=== PATIENT | male | born 1980 | race Caucasian/White ===

== ENCOUNTER → 2016-07-04 | Outpatient (CLI) | payer OTHER ==
[~2016-07-04] MED LIST: IOHEXOL 180 MG/ML 10 ML VIAL. ONE; LOSA100T6 PO; OMEP40CA5 PO; methylPREDNISolone ACETATE 40 MG/ML VIAL. ONE; methylPREDNISolone ACETATE 80 MG/ML VIAL. ONE
--- NOTE | 2016-07-05 06:19 | PAIN ---
DATE OF SERVICE: 07/04/2016 INITIAL CONSULTATION CHIEF COMPLAINT: Low back and right lower extremity pain. HISTORY OF PRESENT ILLNESS: This is a 35-year-old male who presents with history of pain in the low back, right leg, posterior gluteus, posterior thigh for about 5 weeks without any specific injury or accident, but he has been increasing some activity at work as well as at home with increased pain, gradually increasing and radiating from the low back into the right posterior gluteus, posterior thigh to the level of the knee and sometimes into the upper calf on the right side. No symptoms on the left side. The patient reports the pain is stabbing and tingling. He has had some decreased motor function in the right leg with fatigability, but actually feels better when he is walking or changing positions or standing. It is much worse with lying down. It is awakening him from sleep at night at least twice a night. It does not affect his bowel or bladder control, but does affect his ability to walk, although it feels better when he is up and moving around with sitting and driving significantly painful in the right leg with operating a vehicle. The patient reports his disability rating from 0 to 10, 10 being the worst, as a 6 with family and home responsibilities, social activity, 8 with recreation, 5 with occupation and sexual behavior, 6 with self-care and 6 with life support activities. The patient did have an MRI scan of the lumbar spine, showing a large right lateral herniated disc at the L5-S1 level with a fragment present demonstrating [id number] caudal migration it effaces the anterior epidural fat and produces marked deformity of the right S1 nerve root within the right lateral recess of S1. The patient has been doing some stretching and strengthening exercises on his own, has had no formal physical therapies or other treatments, taking ibuprofen as well, which he reports does help to decrease the pain by about 15-20%. Again, the patient reports complete loss of motor function with significant fatigability and pain with driving most noticeably. PAST MEDICAL HISTORY: Significant for hypertension; otherwise, the patient has been in very good health. PAST SURGICAL HISTORY: Previous surgeries include vasectomy in 2015. CURRENT MEDICATIONS: Include losartan and omeprazole. ALLERGIES: The patient has no known drug allergies. FAMILY HISTORY: Significant for no major medical problems or conditions that he is aware of. SOCIAL HISTORY: The patient drinks about 3-4 alcoholic drinks every few weeks. He does not smoke. He is , lives with his spouse and 2 children at home, and lives locally in [place], [place]. REVIEW OF SYSTEMS: The patient's review of systems is positive for those items mentioned in the history of present illness. It is complete, full and well documented on the patient's chart. All systems are reviewed and otherwise negative. PHYSICAL EXAMINATION: VITAL SIGNS: Today, the patient's blood pressure is 147/100, pulse 71, respirations 16, temperature 99.2 degrees Fahrenheit, height is 5 feet 10 inches, weight is 222 pounds. GENERAL: The patient is awake, alert, oriented, appropriate, very pleasant demeanor. HEENT: Shows normocephalic and atraumatic. Extraocular movements are intact and symmetrical. Oral cavity: Mucous membranes are moist and pink. Dentition is intact. NECK: Shows anterior throat supple without palpable lymphadenopathy noted. Swallow reflex is symmetrical. Neck shows full rotational motion of the cervical spine without tenderness or difficulty including extension and flexion. CHEST: Shows normal on inspection. Breath sounds are clear to auscultation bilaterally. HEART: Shows S1 and S2 clear. ABDOMEN: Soft, nontender, nondistended. No palpable organomegaly is noted. No new rebound or guarding demonstrated. BACK: Shows spine grossly in the midline. Normal-appearing cervical lordotic curvature, thoracic kyphotic curvature, and lumbar lordotic curvature. No previous bruises, lesions, rashes or scars are noted. The patient's lumbar paraspinous muscle shows symmetrical on inspection; with palpation, it shows normal muscle girth with some firm tenderness in the low lumbar distribution, but only diffusely and only to a mild extent. No radiation of pain is demonstrated. No atrophy or hypertrophy. No tenderness over the spinous processes, sacrum or sacroiliac regions. The patient shows good rotational motion of the lumbar spine, both laterally, greater than 10 degrees right and left as well as extension greater than 10 degrees, forward flexion to 45 degrees without significant pain reported. EXTREMITIES: Lower extremities show deep tendon reflexes 2+ in the patellar and tendo calcaneus tendons are 1+. Motor exam is strong with 5/5 dorsiflexion, extension, quadriceps and hamstring flexion equal and intact, quadriceps and hamstring flexion on the right is slightly painful, but intact with 5/5 strength. Peripheral pulses are 1+ posterior tibial and dorsalis pedis pulses. No peripheral edema is noted. No clubbing, no cyanosis. Lower extremities are warm and dry to touch, equal in color and appearance. Gaenslen's and Vishal's maneuvers are negative bilaterally. There is positive straight leg raise on the right at about 30-40 degrees, which is decreased but not relieved with knee flexion. Left side is negative. The patient is able to stand, stand on his toes without difficulty or loss of balance, is able to heel and toe walk for several steps in the office today and he walks with a normal-appearing gait for short distances, not using any assistive devices such as canes or walkers. IMPRESSION: 1. This is a 35-year-old male with history of pain for about 5 weeks or so in the low back and right lower extremity in a radicular fashion. 2. MRI scan of lumbar spine as noted. 3. Hypertension. PLAN: Options were discussed with the patient including conservative medical management, physical therapy, interventional techniques and he would like to pursue interventional techniques. We discussed a lumbar epidural steroid injection using description as well as anatomical models to describe the procedure. Risks were then discussed including but not limited to bleeding, infection, possibility of epidural hematoma, subsequent neurologic compromise, dural puncture, headaches, spinal cord and/or nerve damage, side effects of steroid medication and poor results regarding pain control. The patient understands and wishes to proceed. The patient will return to clinic in approximately 2 weeks for followup, was counseled on return appointment, activity level, and side effects to be aware of. The patient also has a followup appointment with his neurosurgeon coming up in about 3 weeks as well. DIAGNOSIS: Lumbar radiculopathy with lumbar herniated disc. PROCEDURE: Lumbar epidural steroid injection in translaminar approach at the L5-S1 level using C-arm fluoroscopic guidance under sterile prep and drape using local anesthetic. MEDICATIONS INJECTED: Depo-Medrol 120 mg plus 10 mL of preservative-free normal saline and 2 mL of Isovue for contrast. CONDITION AT DISCHARGE: Stable. The patient tolerated the procedure well, had no complications. SINAI CRUZ MD DR: HAILY/tato JOB#: [id number] / [id number]
== END | disposition home or self-care (01) ==
LOC: PNCL 10:48
PROVIDERS: ATTEND Anesthesiology
DX: M51.16 Intervertebral disc disorders with radiculopathy, lumbar region (principal); I10 Essential (primary) hypertension; Z72.89 Other problems related to lifestyle
CPT/HCPCS: 62323; J1030; J1040

== ENCOUNTER → 2016-07-16 | Outpatient (CLI) | payer OTHER ==
--- NOTE | 2016-07-17 02:06 | PAIN ---
DATE OF SERVICE: 07/16/2016 PROGRESS NOTE DIAGNOSES: Lumbar radiculopathy with lumbar herniated disk. HISTORY OF PRESENT ILLNESS: The patient is a 35-year-old male who returns for followup status post lumbar epidural steroid injection x 1. The patient reports about 50+ percent improvement in the low back and right leg, doing much better with increased activity with greater ease and comfort and sleeping well at night, still has some dull pain reported in the low back and the right posterior lateral thigh, but much better than it was. The patient reports it is very manageable. 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 The patient reports no new motor or sensory deficits, no new bowel or bladder incontinence or other complaints. PHYSICAL EXAMINATION: VITAL SIGNS: Today, the patient's blood pressure is 140/100, pulse 76, respirations 18, temperature 98.1 degrees Fahrenheit, height 5 feet 10 inches, weight 218 pounds. GENERAL: The patient is awake, alert, oriented, and, appropriate, very pleasant demeanor. HEENT: Head shows normocephalic, atraumatic. Extraocular movements are intact and symmetrical. Oral cavity, mucous membranes are moist and pink. Dentition is intact. NECK: Shows anterior throat supple without palpable lymphadenopathy noted. Swallow reflex is symmetrical. CHEST: Shows normal on inspection. Breath sounds are clear to auscultation bilaterally. HEART: Shows S1 and S2 clear. No murmurs auscultated. ABDOMEN: Soft, nontender, nondistended. No palpable organomegaly. No rebound or guarding demonstrated. BACK: Shows spine grossly midline. Lumbar paraspinous musculature symmetrical on inspection with palpation shows some very mild tenderness with palpation only in the lower lumbar distribution in the right greater than left, but symmetrical once again no evidence of atrophy or hypertrophy. The patient shows good rotation and motion of the lumbar spine, both laterally as well as extension and flexion without difficulty. EXTREMITIES: Lower extremities showed deep tendon reflexes at 2+ in the patellar tendons. Motor exam is strong with 5/5 dorsiflexion, extension, quadriceps and hamstring flexion and are equal and symmetrical. Options were discussed with the patient. At this time, the patient's old chart was reviewed and his current medication regimen updated. Current review of systems updated to date as well. We will proceed with a second lumbar epidural steroid injection today with fluoroscopic guidance. Risks were again discussed including, but not limited to bleeding, infection, possibility of epidural hematoma and subsequent neurological compromise, dural puncture, headaches, spinal cord and/or nerve damage, side effects of steroid medication and poor results regarding pain control. The patient understands and wishes to proceed. The patient will return to clinic in approximately 2 weeks for followup, was counseled on return appointment, activity level and side effects to be aware of. The patient also was counseled as to high blood pressure today and this all may be an individual reading. We discussed that he will follow up with his primary care physician as on his last visit he had diastolic in a similar range of 100. The patient acknowledged this on followup with his primary care physician ____. DIAGNOSES: Lumbar radiculopathy with lumbar herniated disk. PROCEDURE: Lumbar epidural steroid injection in translaminar approach at the L5-S1 level using C-arm fluoroscopic guidance. Under sterile prep and drape using local anesthetic, medication injected is Depo-Medrol 120 mg plus 10 mL of preservative-free normal saline and 2 mL of Isovue contrast. CONDITION AT DISCHARGE: Stable. The patient tolerated the procedure well, had no complications. SINAI CRUZ MD DR: HAILY/tato JOB#: [id number] / [id number]
== END | disposition home or self-care (01) ==
LOC: PNCL 08:39
PROVIDERS: ATTEND Anesthesiology
DX: M51.16 Intervertebral disc disorders with radiculopathy, lumbar region (principal)
CPT/HCPCS: 62323; J1030; J1040

== ENCOUNTER → 2016-08-13 | Outpatient (CLI) | payer OTHER ==
--- NOTE | 2016-08-14 03:36 | PN ---
DATE: 08/13/2016 DIAGNOSES: Lumbar radiculopathy with lumbar herniated disk. HISTORY OF PRESENT ILLNESS: The patient is a 35-year-old male who returns for followup status post lumbar epidural steroid injections x 2. The patient reports about 50% improvement overall, but still some significant pain in the low back and right leg. The patient reports it is still dull aching, rates at 3 on a scale of 10, radiating to the posterior thigh, posterior gluteus, into the knee and into the lower calf. The patient reports worse with activity, standing, walking, and change in positions. He has been still working and tolerated the pain and is putting off surgery until he is able to better prepare for the postoperative phase with limitations at that level. The patient reports no new motor or sensory deficits, no new bowel or bladder incontinence or other complaints. PHYSICAL EXAMINATION: VITAL SIGNS: The patient's blood pressure 140/92, pulse 80, respirations 20, temperature 98.1 degrees Fahrenheit, height is 5 feet 10 inches, and weighs 220 pounds. GENERAL: The patient is awake, alert, oriented, appropriate, very pleasant demeanor. HEENT: Head shows normocephalic and atraumatic. Extraocular movements are intact, symmetrical. Oral cavity, mucous membranes are moist and pink. Dentition is intact. NECK: Shows anterior throat supple without palpable lymphadenopathy noted. Swallow reflex is symmetrical. CHEST: Shows normal on inspection. Breath sounds are clear to auscultation bilaterally. HEART: Shows S1 and S2 clear. No murmurs auscultated. ABDOMEN: Soft, nontender, and nondistended. BACK: Shows spine grossly midline. Lumbar paraspinous musculature shows symmetrical on inspection with palpation shows moderate tenderness in the low lumbar distribution, more on the right than the left, but is symmetrical without evidence of atrophy, hypertrophy, muscle girth is normal. No trigger points or radiation. No tenderness over the sacrum or sacroiliac regions. The patient has full rotational motion of lumbar spine, both laterally as well as extension and flexion without difficulty. EXTREMITIES: Lower extremities showed deep tendon reflexes at 2+ in the patellar, 1+ tendo-calcaneus tendons are equal and symmetrical. Motor exam is strong with 5/5 dorsiflexion, extension, quadriceps and hamstring flexion and symmetrical. Peripheral pulses are 2+ in the posterior tibial and dorsalis pedis pulses. No peripheral edema is noted bilaterally. Options were discussed with the patient. We will proceed with the third lumbar epidural steroid injection today with fluoroscopic guidance. Risks were again discussed including, but not limited to bleeding, infection, possibility of epidural hematoma, subsequent neurologic compromise, dural puncture, headaches, spinal cord and/or nerve damage, side effects of steroid medication and poor results regarding pain control. The patient understands and wishes to proceed. The patient will return to clinic in approximately 2 weeks for followup. He was counseled to return appointment, activity level and side effects to be aware of. DIAGNOSIS: Lumbar radiculopathy with lumbar herniated disk. PROCEDURES: Lumbar epidural steroid injection with translaminar approach at the L5-S1 level using C-arm fluoroscopic guidance under sterile prep and drape using local anesthetic. MEDICATIONS INJECTED: Depo-Medrol 120 mg plus 10 mL of preservative-free normal saline and 2 mL of Isovue for contrast. CONDITION AT DISCHARGE: Stable. The patient tolerated procedure well, had no complications. SINAI CRUZ MD DR: HAILY/tato JOB#: [id number] / [id number]
== END | disposition home or self-care (01) ==
LOC: PNCL 13:02
PROVIDERS: ATTEND Anesthesiology
DX: M51.16 Intervertebral disc disorders with radiculopathy, lumbar region (principal)
CPT/HCPCS: 62323; J1030; J1040

== ENCOUNTER → 2016-10-27 | Outpatient (CLI) | payer OTHER ==
[~2016-10-27] MED LIST changes: +CYCL10TA2 PO; +DEXT20CA7 PO; +DOCU-109 PO; +HYDR-965 PO; +IBUP-1007 PO; -IOHEXOL 180 MG/ML 10 ML VIAL. ONE; -methylPREDNISolone ACETATE 40 MG/ML VIAL. ONE; -methylPREDNISolone ACETATE 80 MG/ML VIAL. ONE
--- NOTE | 2016-10-27 14:57 | EKG ---
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 POSSIBLY ABNORMAL ECG RI6.01 No previous ECG available for comparison Electronically Signed On 10-29-2016 11:15:49 CDT by Gerard Rouse
[2016-10-27 15:40] LABS: BASO % 0 % (0-3); EOS % 1 % (0-3); HEMATOCRIT 42.6 % (39.0-53.0); HEMOGLOBIN 14.6 g/dL (13.0-17.5); LYMPH # 2.4 x10^3/uL (1.0-4.8); LYMPH % 25 % (24-48); MEAN CORPUSCULAR HEMOGLOBIN 30 pg (25-35); MEAN CORPUSCULAR HGB CONC 34 g/dL (31-37); MEAN CORPUSCULAR VOLUME 88 fL (79-100); MONO % 7 % (0-9); NEUT % 66 % (31-73); PLATELET COUNT 268 x10^3/uL (140-400); RED BLOOD COUNT 4.84 x10^6/uL (4.30-5.70); RED CELL DISTRIBUTION WIDTH 12.8 % (11.5-14.5); WHITE BLOOD COUNT 9.6 x10^3/uL (4.0-11.0)
[2016-10-27 16:00] LABS: ALBUMIN 4.1 g/dL (3.4-5.0); ALBUMIN/GLOBULIN RATIO 1.1 (1.0-1.7); CALCIUM 9.3 mg/dL (8.5-10.1); CREATININE 0.8 mg/dL (0.7-1.3); GFR 108.8; POTASSIUM 3.8 mmol/L (3.5-5.1); TOTAL BILIRUBIN 0.4 mg/dL (0.2-1.0); TOTAL PROTEIN 7.7 g/dL (6.4-8.2)
--- NOTE | 2016-10-28 21:06 | HP ---
ADMIT DATE: 10/27/2016 HISTORY OF PRESENT ILLNESS: The patient is a 35-year-old male who is having difficulty with right buttock and posterior thigh and leg pain. This problem started about 4 months ago. He said he had been over exercising and fell out of a tree and the pain began. He says currently he is most severely affected when he awakens in the morning and ____ out of bed. During the day, his pain is a 3/10. He says that during the day, his pain overall improves to a degree. He says limiting his activities has helped him significantly. He had 3 epidural steroid injections for this. He said they have helped him to a degree. He takes ibuprofen regularly for pain. He has pain in his buttock; pain in his posterior thigh and leg. He did not notice weakness. He does not feel constant numbness, but intermittently he has noted some numbness involving his right foot. There is no problem on the left side. He feels as though he is limping when he is active. PAST MEDICAL HISTORY: Hypertension. PAST SURGICAL HISTORY: Denies. 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 . Exercises daily. Denies tobacco use. Denies substance abuse. Drinks 1-2 times per week. Drinks coffee daily. ALLERGIES: No known drug allergies. CURRENT MEDICATIONS: Omeprazole, Adderall, losartan, potassium and ibuprofen. REVIEW OF SYSTEMS: A 12-point review of systems was obtained and is noncontributory except for that mentioned above. PHYSICAL EXAMINATION: NEUROSURGERY EXAMINATION: GENERAL APPEARANCE: Alert, pleasant, in no acute distress. HEAD: Normocephalic and atraumatic. SKIN: Warm and dry. MUSCULOSKELETAL: Lumbar paraspinal muscle bulk is normal, restricted range of motion of the lumbar spine, [id number] tenderness of lower lumbar spine with palpation, normal range of motion of the lower extremities bilaterally. EXTREMITIES: No clubbing, cyanosis, or edema. NEUROLOGIC: Alert and oriented x 3, normal recent and remote memory, strength 5/5 in bilateral lower extremities, sensory was intact to light touch in the lower extremities bilaterally, reflexes were present and symmetric in bilateral lower extremities except for decreased right ankle jerk. Positive straight leg raising on the right, negative straight leg raising on the left, normal gait. IMAGING: Reviewed. I reviewed a lumbar MRI scan. On that study, at L5-S1, there is a large right lateral herniated disk which is extruded inferiorly. There is a marked deformity in compression of the right S1 nerve root with right lateral recess. ASSESSMENT: 1. Intervertebral disk disorders with radiculopathy, lumbosacral region. PLAN: The patient continues to be troubled with back and right leg pain. Then he becomes active. He has large herniated disk on the right side at L5-S1 and his problems have failed to resolve following conservative measures and time. I recommended lumbar microsurgery. At this point, he would like to go ahead with surgery. I outlined the surgery and the risks involved. He understands and would like to proceed. We will make the arrangements. ZAMZAM HERNANDEZ MD DR: GILBERTO/tato JOB#: [id number] / [id number]
[2016-10-30 11:04] VITALS: BP 101/69
== END | disposition home or self-care (01) ==
LOC: SURGPAT 11:15
PROVIDERS: ATTEND Neurological Surgery
DX: Z01.818 Encounter for other preprocedural examination (principal); I10 Essential (primary) hypertension
CPT/HCPCS: 36415; 80053; 85027; 87641; 93005

== ENCOUNTER 2016-10-30 06:45 | Day surgery (SDC) | payer OTHER ==
[~2016-10-30] VITALS: Ht 177.8 cm; Wt 99.3 kg
[~2016-10-30 06:45] MED LIST changes: +BACITRACIN 50,000 UNIT in IV NORMAL SALINE 1000ML BAG 1,000 ML IRR ONE; -CYCL10TA2 PO; -DOCU-109 PO; -HYDR-965 PO
[2016-10-30] MEDS ORDERED: MORPHINE SULFATE 2 MG/ML DISP.SYRIN. IV PRN (07:00)
[2016-10-30] MEDS ORDERED: LIDOCAINE 1% 1 ML SYRINGE. ID PRN (07:00)
[2016-10-30] MEDS ORDERED: HYDROmorphone 2 MG/ML VIAL IV PRN (07:00)
[2016-10-30] MEDS ORDERED: ONDANSETRON PF 4 MG/2 ML VIAL. IV PRN (07:00)
[2016-10-30] MEDS ORDERED: IV RINGERS,LACTATED 1000ML 1,000 ML IV SCH (07:00)
[2016-10-30] MEDS ORDERED: fentaNYL PF VIAL 100 MCG/2 ML VIAL IV PRN ×2 (07:00)
[2016-10-30] MEDS ORDERED: PROCHLORPERAZINE 10 MG/2 ML VIAL. IV PRN (07:00)
[2016-10-30] MEDS ORDERED: THROMBIN TOPICAL 20,000 UNIT SPRAY.SYRN KIT TP ONE (07:33)
[2016-10-30] MEDS ORDERED: GELATIN SPONGE SIZE 100. ONE (07:33)
[2016-10-30] MEDS ORDERED: KETOROLAC 60 MG/2 ML INJ FOR OR. ONE ×2 (07:33→09:13)
[2016-10-30] MEDS ORDERED: BUPIVACAINE-EPI 0.25%-1:200000 MPF 30 ML VIAL. ONE ×2 (07:34→09:13)
[2016-10-30] MEDS ORDERED: REMIFENTANIL 2 MG VIAL. IV ONE (08:16)
[2016-10-30] MEDS ORDERED: MIDAZOLAM HCL/PF 2 MG/2 ML VIAL. ONE (08:16)
[2016-10-30] MEDS ORDERED: LIDOCAINE 2% PF Vial for OR 5 ML VIAL. ONE (08:17)
[2016-10-30] MEDS ORDERED: ISOFLURANE > 120 MINUTES. IH ONE (08:17)
[2016-10-30] MEDS ORDERED: ONDANSETRON PF 4 MG/2 ML VIAL. ONE (08:17)
[2016-10-30] MEDS ORDERED: DEXAMETHASONE SOD PHOS 20 MG/5 ML VIAL. ONE (08:17)
[2016-10-30] MEDS ORDERED: GLYCOPYRROLATE 1 MG/5 ML VIAL. ONE (08:17)
[2016-10-30] MEDS ORDERED: PROPOFOL 20 ML IV ONE (08:17)
[2016-10-30] MEDS ORDERED: ROCURONIUM 50 MG/5 ML VIAL. ONE (08:17)
[2016-10-30] MEDS ORDERED: PHENYLEPHRINE 10 MG/ML VIAL. ONE (08:17)
[2016-10-30] MEDS ORDERED: PROPOFOL 50 ML IV ONE ×2 (08:21→09:15)
[2016-10-30] MEDS ORDERED: fentaNYL PF VIAL 100 MCG/2 ML VIAL ONE (10:17)
[2016-10-30] MEDS ORDERED: KETOROLAC 30 MG/ML INJ FOR OR. INJ ONE (10:18)
--- NOTE | 2016-10-30 10:35 | DISCH ---
DISCHARGE INSTRUCTIONS Condition on Discharge Condition on Discharge: Stable Activity After Discharge Activity Instructions for Disc: Activity as tolerated, Avoid exertion Other activity instructions: no driving for a week Bathing Instructions: Shower-keep dressing dry Lifting Instructions after Dis: No heavy lifting, No pulling or pushing, Do not lift >10 pounds Diet after Discharge Additional Diet Restrictions: resume home diet Wound Incision Care Wound/Incision Care: Ice to area for comfort Other wound/incision instructi: may remove dressing in 48 hrs if dry then may shower- no soaking Contacting the after DC Call your doctor for: Concerns you may have Follow-Up Follow up with: f/u with Dr. Hernandez's nurse in 2 weeks [phone] ZAMZAM HERNANDEZ MD Oct 30, 2016 10:35
[2016-10-30] MEDS ORDERED: CYCL10TA2 PO (10:43)
[2016-10-30] MEDS ORDERED: HYDR-965 PO (10:43)
[2016-10-30] MEDS ORDERED: DOCU-109 PO (10:43)
[2016-10-30] MEDS ORDERED: HYDROcodone/APAP 7.5/325MG 1 TAB TABLET PO ONE (10:45)
[2016-10-30 11:42] VITALS: BP 131/80
--- NOTE | 2016-10-30 13:00 | OP ---
DATE OF SURGERY: 10/30/2016 PREOPERATIVE DIAGNOSES: Herniated disk, L5-S1, right with severe right lumbar radiculopathy. POSTOPERATIVE DIAGNOSIS: Herniated disk, L5-S1, right with severe right lumbar radiculopathy. OPERATION PERFORMED: Hemilaminotomy and microdiskectomy, L5-S1, right. RED HAT OPEN STACK ADMINISTRATOR: NATASHA Bach, assisted with the exposure, the microdiskectomy as well as the closure. The operation was done with EMG monitoring, fluoroscopy, and microscopic dissection. OPERATIVE INDICATIONS: The patient is a very pleasant 35-year-old who developed intractable back and right leg pain which failed to improve with conservative measures including epidural steroid injections. On imaging studies, there was a large focal disk herniation at L5-S1 on the right with severe nerve root compression, and I recommended lumbar microsurgery. I spoke with him about the surgery, the risks, the technique of the operation, and the expected postoperative course, and he wished to go ahead. DESCRIPTION OF PROCEDURE: Following general endotracheal anesthesia, the patient was positioned prone on the [place] frame. His lumbar region was prepped and draped in the standard fashion. EVY hose and AV impulse boots were applied for DVT prophylaxis. A microscope was draped. Fluoroscopy was draped and brought into field. Monitoring was established. Ancef 2 grams were given less than 1 hour prior to initiation of the surgery. Using fluoroscopic guidance, incision was made directly over the L5-S1 interspace. I dissected down to skin and subcutaneous tissue and reflected the paraspinal muscles gently and placed a small [place] micro disk retractor. I brought in the microscope, and the remainder of surgery was done with the microscope using microscopic technique. I burred a generous hemilaminotomy with a high-speed air drill and then began to gently trim bone and exposed the S1 nerve root in the foramen, and I gently peeled down and removed ligamentum flavum exposing the dura and the S1 root very nicely. That root was lifted and compressed markedly by a large firm disk fragment directly at the level of the disk, and I gently retracted the root medially with a micro nerve root retractor. Using a #11 blade, I incised the ligament. Then with a blunt hook, I teased back and gently freed up this large fragment and pulled it laterally and removed it. This largely decompressed the root, but then palpating farther inferiorly, there was a second disk fragment, which I grasped with a micropituitary, gently began to tease and worked this free, and then a second large fragment came out from underneath the root inferiorly. When this occurred, the entire region was very well decompressed. I did enter the disk space with the micropituitary and continued my diskectomy. When that was completed, I irrigated it copiously with antibiotic solution. I did coagulate one epidural vein which was lateral to the S1 root and paralleling it. Otherwise, the hemostasis was excellent. During the initial exposure, I did use a few small pieces of bone wax to maintain absolutely excellent hemostasis throughout. At this point, then I palpated and explored carefully. The root was very free. The dura at this level was free. There were no retained fragments. I irrigated it copiously, and then I removed the retractor and obtained hemostasis in the muscle and closed the wound in layers with absorbable suture, and the skin was closed with 4-0 subcuticular stitch. The operation went very well, and the patient was awakened and eventually taken to Recovery Room in excellent condition. I was quite pleased with the surgery. ZAMZAM HERNANDEZ MD DR: GILBERTO/tato JOB#: [id number] / [id number]
--- NOTE | 2016-10-30 17:37 | HP ---
ADMIT DATE: 10/27/2016 HISTORY OF PRESENT ILLNESS: The patient is a 35-year-old male who is having difficulty with right buttock and posterior thigh and leg pain. This problem started about 4 months ago. He said he had been over exercising and fell out of a tree and the pain began. He says currently he is most severely affected when he awakens in the morning and ____ out of bed. During the day, his pain is a 3/10. He says that during the day, his pain overall improves to a degree. He says limiting his activities has helped him significantly. He had 3 epidural steroid injections for this. He said they have helped him to a degree. He takes ibuprofen regularly for pain. He has pain in his buttock; pain in his posterior thigh and leg. He did not notice weakness. He does not feel constant numbness, but intermittently he has noted some numbness involving his right foot. There is no problem on the left side. He feels as though he is limping when he is active. PAST MEDICAL HISTORY: Hypertension. PAST SURGICAL HISTORY: Denies. 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 . Exercises daily. Denies tobacco use. Denies substance abuse. Drinks 1-2 times per week. Drinks coffee daily. ALLERGIES: No known drug allergies. CURRENT MEDICATIONS: Omeprazole, Adderall, losartan, potassium and ibuprofen. REVIEW OF SYSTEMS: A 12-point review of systems was obtained and is noncontributory except for that mentioned above. PHYSICAL EXAMINATION: NEUROSURGERY EXAMINATION: GENERAL APPEARANCE: Alert, pleasant, in no acute distress. HEAD: Normocephalic and atraumatic. SKIN: Warm and dry. MUSCULOSKELETAL: Lumbar paraspinal muscle bulk is normal, restricted range of motion of the lumbar spine, [id number] tenderness of lower lumbar spine with palpation, normal range of motion of the lower extremities bilaterally. EXTREMITIES: No clubbing, cyanosis, or edema. NEUROLOGIC: Alert and oriented x 3, normal recent and remote memory, strength 5/5 in bilateral lower extremities, sensory was intact to light touch in the lower extremities bilaterally, reflexes were present and symmetric in bilateral lower extremities except for decreased right ankle jerk. Positive straight leg raising on the right, negative straight leg raising on the left, normal gait. IMAGING: Reviewed. I reviewed a lumbar MRI scan. On that study, at L5-S1, there is a large right lateral herniated disk which is extruded inferiorly. There is a marked deformity in compression of the right S1 nerve root with right lateral recess. ASSESSMENT: 1. Intervertebral disk disorders with radiculopathy, lumbosacral region. PLAN: The patient continues to be troubled with back and right leg pain. Then he becomes active. He has large herniated disk on the right side at L5-S1 and his problems have failed to resolve following conservative measures and time. I recommended lumbar microsurgery. At this point, he would like to go ahead with surgery. I outlined the surgery and the risks involved. He understands and would like to proceed. We will make the arrangements. ZAMZAM HERNANDEZ MD DR: GILBERTO/tato JOB#: [id number] / [id number]
--- NOTE | 2016-10-31 13:36 | PATHOLOGY ---
PATHOLOGY REPORT * * * * * * * * FINAL DIAGNOSIS: Cartilage, bone and fibromuscular tissue "lumbar disc and decompression": - Fibrocartilaginous tissue, bone and muscle consistent with disk material. ([facility]; d/t: 10/31/2016) REPORT ELECTRONICALLY SIGNED BY: Gianni Izquierdo M.D. DATE/TIME: 10/31/2016 13:35 * * * * * * * * GROSS PATHOLOGY: Received in formalin labeled "Elkin Saba, lumbar disc and decompression" are multiple segments of osborne, rubbery, and gritty tissue admixed with bone. The specimen measures 2.8 x 2.5 x 0.7 cm in aggregate dimensions. The tissue is submitted representatively in cassette A1, following decalcification. ([facility]; 10/30/16) INITIAL CPT CODE(S): A; 55674, 27680 Professional services [place] [place] [address] Technical services performed by [facility] at [address] [place] [address], [facility] [address] [address]. SPECIMEN(S) RECEIVED: A.Lumbar disc and decompression CLINICAL HISTORY: Lumbar herniated disc PATIENT: ELKIN SABA /AGE: 7 1980 (Age: 35) PATIENT #: [id number] ALT CASE #: SPECIMEN COLLECTION DATE: 10/30/2016 SPECIMEN RECEIVED DATE: 10/30/2016 [facility] - [address] [place] [address] - PHONE: [phone] * * * END OF REPORT * * *
== END 2016-10-30 12:06 | disposition home or self-care (01) ==
LOC: SURG 06:45
PROVIDERS: ATTEND Neurological Surgery
DX: M51.16 Intervertebral disc disorders with radiculopathy, lumbar region (principal); I10 Essential (primary) hypertension; K21.9 Gastro-esophageal reflux disease without esophagitis; Z86.69 Personal history of other diseases of the nervous system and sense organs; Z87.39 Personal history of other diseases of the musculoskeletal system and connective tissue; Z72.89 Other problems related to lifestyle
CPT/HCPCS: 63030; 76000; J0690; J1100; J1885; J2250; J2405; J2704; J3010; J3490; J7030; 88304; 88311